=== PATIENT | female | born 1955 | race Caucasian/White ===

== ENCOUNTER 2016-09-22 13:10 | Inpatient (IN) | payer BC, OTHER ==
[~2016-09-22] VITALS: Ht 165.1 cm; Wt 72.6 kg
[2016-09-22] MEDS ORDERED: ONDANSETRON ODT 4 MG TAB.RAPDIS SL PRN (13:45)
[2016-09-22] MEDS ORDERED: LOPERAMIDE HCL 2 MG CAPSULE PO PRN ×2 (13:45)
[2016-09-22] MEDS ORDERED: MAGNESIUM HYDROXIDE 30 ML LIQUID UDC PO PRN (13:45)
[2016-09-22] MEDS ORDERED: MAG HYDROX/AL HYDROX/SIMETH 30 ML LIQUID UDC PO PRN (13:45)
[2016-09-22] MEDS ORDERED: ACETAMINOPHEN 325 MG TABLET PO PRN (13:45)
[2016-09-22] MEDS ORDERED: LORAZEPAM 2 MG/1 ML VIAL IM PRN (13:45)
[2016-09-22] MEDS ORDERED: MIRALAX 17 GM POWD.PACK PO PRN (13:45)
[2016-09-22] MEDS ORDERED: PROMETHAZINE HCL 25 MG/1 ML VIAL IM PRN (13:45)
[2016-09-22] MEDS ORDERED: CLONIDINE HCL 0.1 MG TABLET PO PRN (13:45)
[2016-09-22] MEDS ORDERED: LORAZEPAM 1 MG TABLET PO PRN ×2 (13:45)
[2016-09-22] MEDS ORDERED: HYDROXYZINE PAMOATE 25 MG CAPSULE PO PRN (13:45)
[2016-09-22] MEDS ORDERED: PARO20TA51 PO (14:55)
[2016-09-22] MEDS ORDERED: LOSA1TAB36 PO (14:55)
[2016-09-22] MEDS ORDERED: ACYC400T PO (14:55)
[2016-09-22] MEDS ORDERED: POLY30DR OP (14:58)
[2016-09-22] MEDS ORDERED: [UNRECOGNIZED DRUG - OTHER] (14:58)
[2016-09-22] MEDS ORDERED: THIAMINE HCL 200 MG/2 ML VIAL IM ONE (15:00)
[2016-09-22 15:02] VITALS: BP 132/68
[2016-09-22] MEDS: LORAZEPAM 1 MG TABLET PO SCH ×3 (15:04→22:00)
[2016-09-22 15:10] LABS: BASOPHILS % (AUTO) 0.5 % (0.0-2.0); EOSINOPHILS % (AUTO) 0.3 % (0.0-7.0); HEMATOCRIT 40.3 % (37.0-47.0); HEMOGLOBIN 13.7 g/dL (12.0-16.0); LYMPHOCYTES # (AUTO) 1.8 K/uL (0.8-4.8); LYMPHOCYTES % (AUTO) 25.4 % (20.5-51.5); MEAN CORPUSCULAR HEMOGLOBIN 34.1 uug (27.0-31.0); MEAN CORPUSCULAR HGB CONC 34 g/dL (32.0-37.0); MEAN CORPUSCULAR VOLUME 100.4 fL (81.0-99.0); MONOCYTES # (AUTO) 0.5 K/uL (0.1-1.30); MONOCYTES % (AUTO) 6.6 % (0.0-11.0); NEUTROPHILS # (AUTO) 4.8 K/uL (1.8-8.9); NEUTROPHILS % (AUTO) 67.2 % (38.5-71.5); PLATELET COUNT (AUTO) 308 K/uL (150-450); RED BLOOD CELL COUNT(AUTO) 4.02 MIL/uL (4.20-5.40); RED CELL DISTRIBUTION WIDTH 12.7 % (11.5-14.5); WHITE BLOOD COUNT (AUTO) 7.1 K/uL (4.0-11.2)
[2016-09-22 16:16] LABS: HIV-1 p24 ANTIGEN NON REACTIVE (NONREACTIVE); HIV-1/2 ANTIBODY NON REACTIVE (NONREACTIVE)
[2016-09-22 16:25] LABS: ALANINE AMINOTRANSFERASE 46 U/L (14-59); ALBUMIN 3.7 g/dL (3.4-5.0); ALKALINE PHOSPHATASE 73 U/L (50-136); AMYLASE 64 U/L (25-115); ASPARTATE AMINOTRANSFERASE 26 U/L (15-37); BILIRUBIN,TOTAL 0.6 mg/dL (0.2-1.0); CALCIUM 9.1 mg/dL (8.5-10.1); CARBON DIOXIDE 30 mmol/L (21-32); CHLORIDE 99 mmol/L (98-107); CREATININE 0.7 mg/dL (0.6-1.3); GFR 85 mL/min (>60); GLUCOSE 94 mg/dL (74-106); LIPASE 312 U/L (73-393); MAGNESIUM 2.2 mg/dL (1.8-2.4); POTASSIUM 3.9 mmol/L (3.5-5.1); SODIUM SERUM 138 mmol/L (136-145); TOTAL PROTEIN, SERUM 7.5 g/dL (6.4-8.2)
[2016-09-22 16:37] LABS: THYROID STIMULATING HORMONE 0.958 mIU/mL (0.358-3.740)
[2016-09-22 16:46] LABS: ETHANOL < 3 MG/DL (0-0)
[2016-09-22 16:47] LABS: *AMPHETAMINE, URINE NEGATIVE (NEGATIVE); *BARBITURATE, URINE NEGATIVE (NEGATIVE); *CANNABINOID, URINE NEGATIVE (NEGATIVE); *COCCAINE, URINE NEGATIVE (NEGATIVE); *OPIATE, URINE NEGATIVE (NEGATIVE); *PHENCYCLIDINE SCREEN,URINE NEGATIVE (NEGATIVE)
[2016-09-22 16:47] LABS: UREA NITROGEN, BLOOD 20 mg/dL (7-18)
--- NOTE | 2016-09-22 17:05 | NUR ---
ADMISSION Admitted a 61 year old female from [facility]. Arrived on [facility] at 1415, patients body assessment completed, noted with intact skin no breakdown, bruising or discoloration noted. Patient body search completed by female HOME HEALTH ATTENDANT, no contraband found. Patient was oriented to unit and educated regarding light use with good verbal understanding. Patient vital signs WNL. Patient reports allergies to: shellfish. Patient is 5 feet 5 inches and weights 160lbs. Patient reports substance use history of: 1. ETOH- vodka 750ml daily for one year, with history of drinking alcohol since the age of 21. Patient reports was in an outpatient program 4 years ago for 60 days with longest period of sobriety 3/4 of a year. patient reports this past year has been drinking on a daily basis. Patient reports she is not a cigarette smoker. Patient reports her primary care physician is Dr. John Robledo in [place] at [facility]. Patient reports past medical history of hypertension and depression. Denies any history of seizures. Patient denies any history of family substance abuse. Reports she received a flu and pna vaccine in April 2016. Past surgical history of: hysterectomy 20 years ago and appendectomy. patient presented alert and oriented x4, vital signs with in normal limits. Presented with mild nausea, and anxiety with ciwa score of: 5. Patient was seen and examined by Dr. Solis, admitting orders were input. Psychiatrist aware of new admission. Patients abdomen is soft and non distended, bowel sounds heard in all quadrants. Respirations are even and unlabored, lungs clear upon auscultation. Patient with admitting VTE score of 2, DVT pumps placed in room, patient was administered vitamin B1 injection as ordered at 1530. Patient was placed on an Ativan taper, first dose administered at 1530, safety measures in place. call light with in reach, will continue to monitor closely.
[2016-09-22 17:34] VITALS: BP 122/65
[2016-09-22 18:15] VITALS: BP 122/65
--- NOTE | 2016-09-22 19:08 | NUR ---
END OF SHIFT Patient alert and oriented x4, patient compliant with therapeutic plan of care, admitted at 1415, was placed on a 5 day Ativan taper, first dose of taper administered at 1500. Patient with admitting Dx: etoh dependence, admitting ciwa score of: 5, presented with mild nausea and anxiety. 1700 assessment patient presented with: anxiety with ciwa score of: 3. encouraged patient adequate PO fluid intake as tolerated noted with good appetite patient, encouraged patient to attend group therapies/sessions to learn new coping skills to prevent relapse, patient denies SI/HI. Safety measures in place. Call light with in reach, will continue to monitor closely. Patient endorsement report given to security shift supervisor nurse, all pertinent information discussed.
[2016-09-22 20:00] VITALS: BP 116/73
--- NOTE | 2016-09-22 20:00 | NUR ---
Start of Shift Pt is a 61 year old female admitted on 09/22/2016 for ETOH, placed on 5 day Ativan taper, started today. Pt reported consuming Vodka 750ml /daily x1 year, last intake of 750ml on 09/21/2016. PMH: HTN, Depression, Hysterectomy and Appendectomy. Pt is allergic to Shellfish, regular diet, fall/seizure precautions denies any history of seizures and full code. Upon assessment, pt reports anxiety, reports mild chills throughout body, respirations even and unlabored, denies SOB/chest pain, denies n/v/d, skin warm, moist and intact, bowel sounds active x4, abdomen soft. Safety measures in place, call light within reach, side rails up x2, bed locked and in low position. Will continue to monitor.
[2016-09-23] VITALS: BP 128/87
--- NOTE | 2016-09-23 | NUR ---
Vital Signs BP 128/87, pulse 74, respirations 16, SpO2 98%, SpO2 97.7, pain rated 0/10. CIWA assessment deferred d/t pt sleeping - to assess while pt is awake as ordered. Pt is sleeping, no s/s of distress noted, respirations even and unlabored. Safety measures in place, call light within reach, side rials up x2, bed locked and in low position. Will continue to monitor.
--- NOTE | 2016-09-23 04:00 | NUR ---
Pt refused to be woken up for 0400 Vital Signs CIWA assessment deferred d/t pt sleeping - to assess while pt is awake as ordered. Pt is sleeping, no s/s of distress noted, respirations even and unlabored. Safety measures in place, call light within reach, side rials up x2, bed locked and in low position. Will continue to monitor.
--- NOTE | 2016-09-23 07:00 | NUR ---
End of Shift Pt is a 61 year old female admitted on 09/22/2016 for ETOH, placed on 5 day Ativan taper, started today. Pt reported consuming Vodka 750ml /daily x1 year, last intake of 750ml on 09/21/2016. PMH: HTN, Depression, Hysterectomy and Appendectomy. Pt is allergic to Shellfish, regular diet, fall/seizure precautions denies any history of seizures and full code. During shift, pt presented with anxiety, chills - scheduled taper mediation administered, CIWA 4. No PRN medications administered. VS stable, pt slept for 8 hours, intake of 500 ml PO and voids x0. Safety measures in place, call light within reach, side rails up x2, bed locked and in low position. Endorsed to day shift nurse.
--- NOTE | 2016-09-23 07:29 | NUR ---
BEGINNING OF SHIFT Patient endorsement report received from assistant shift supervisor nurse, all pertinent information discussed. Patient is a 61 year old female admitted on 09/22/2016 with admitting Dx:etoh dependence. Patient with past medical history of: depression and hypertension. Patient with substance use history of: 750ml of vodka daily for one year. As per assistant shift supervisor patient received no PRNS during assistant shift supervisor, Per assistant shift supervisor patients last ciwa score of: 4, currently with 5 day Ativan taper, patient to begin day 2 of taper. slept for 8 hours. Patient received in bed with eyes closed respirations are even and unlabored. Responsive to verbal stimuli, educated regarding plan of care for the day and medication regimen, patient is scheduled for bedside paracentesis during shift as ordered, safety measures in place, call light with in reach, will continue to monitor closely Addendum: 09/23/16 at 0748 by IVON DUNCAN LVN CLARIFICATION: ERROR: PLEASE DISREGARD NOTE ABOVE, WRONG PATIENT.
--- NOTE | 2016-09-23 07:48 | NUR ---
BEGINNING OF SHIFT Patient endorsement report received from health aid nurse, all pertinent information discussed. Patient is a 61 year old female admitted on 09/22/2016 with admitting Dx:etoh dependence. Patient with past medical history of: depression and hypertension. Patient with substance use history of: 750ml of vodka daily for one year. As per health aid patient received no PRNS during health aid, Per health aid patients last ciwa score of: 4, currently with 5 day Ativan taper, patient to begin day 2 of taper. slept for 8 hours. Patient received in bed with eyes closed respirations are even and unlabored. Responsive to verbal stimuli, educated regarding plan of care for the day and medication regimen, safety measures in place, call light with in reach, will continue to monitor closely
[2016-09-23 08:22] VITALS: BP 146/90
[2016-09-23] MEDS: MULTIVITAMINS,THERAPEUTIC TABLET PO SCH (08:24)
[2016-09-23] MEDS: FOLIC ACID 1 MG TABLET PO SCH (08:24)
[2016-09-23] MEDS: LORAZEPAM 1 MG TABLET PO SCH ×3 (08:24→20:21)
[2016-09-23] MEDS: THIAMINE HCL 100 MG TABLET PO SCH (08:24)
[2016-09-23] MEDS ORDERED: TUBERCULIN,PURIF.PROT.DERIV. 5 TU/0.1 ML TEST ID ONE (09:00)
[2016-09-23 11:17] LABS: HCV AB 0.2 s/co ratio (0.0-0.9); HEPATITIS B CORE AB, IgM Negative (Negative); HEPATITIS B SURFACE AG Negative (Negative)
[2016-09-23 14:39] VITALS: BP 145/88
[2016-09-23] MEDS: PAROXETINE HCL 20 MG TABLET PO SCH (14:41)
[2016-09-23] MEDS: LOSARTAN HCTZ PO SCH (15:59)
[2016-09-23 16:18] VITALS: BP 132/83
--- NOTE | 2016-09-23 18:41 | NUR ---
END OF SHIFT Patient alert and oriented x4, patient compliant with therapeutic plan of care, Patient with admitting Dx: etoh dependence and is currently on a 5 day Ativan taper, patient continues with day 2 of taper, , well tolerated, no ASE noted. 0900 assessment patient presented with: anxiety and barely sweating with ciwa score of: 5; 1300 assessment patient presented with barely sweating and anxiety with ciwas core of: 5; 1700 assessment patient presented with barely sweating and anxiety with ciwa score of; 5, patient was seen by psychiatrist during shift, Prozac was reconciled and administered as ordered. Blood pressure medication was also reconciled by Dr. Solis, all medications were administered as ordered. encouraged patient adequate PO fluid intake as tolerated noted with good appetite patient, encouraged patient to attend group therapies/sessions to learn new coping skills to prevent relapse, preferred to stay in room, patient denies SI/HI. Safety measures in place. Call light with in reach, will continue to monitor closely. Patient endorsement report given to second shift supervisor nurse, all pertinent information discussed.
[2016-09-23 20:00] VITALS: BP 113/74
--- NOTE | 2016-09-23 20:00 | NUR ---
Start of Shift Pt is a 61 year old female admitted on 09/22/2016 for ETOH, placed on 5 day Ativan taper, started today. Pt reported consuming Vodka 750ml /daily x1 year, last intake of 750ml on 09/21/2016. PMH: HTN, Depression, Hysterectomy and Appendectomy. Pt is allergic to Shellfish, regular diet, fall/seizure precautions denies any history of seizures and full code. Upon assessment, pt reports anxiety, presents with sweating, respirations even and unlabored, denies SOB/chest pain, denies n/v/d, skin warm, moist and intact, bowel sounds active x4, abdomen soft. Safety measures in place, call light within reach, side rails up x2, bed locked and in low position. Will continue to monitor.
--- NOTE | 2016-09-24 | NUR ---
Pt refused to be woken up for 0000 Vital Signs CIWA assessment deferred d/t pt sleeping - to assess while pt is awake as ordered. Pt is sleeping, no s/s of distress noted, respirations even and unlabored. Safety measures in place, call light within reach, side rials up x2, bed locked and in low position. Will continue to monitor.
--- NOTE | 2016-09-24 07:00 | NUR ---
End of Shift Pt is a 61 year old female admitted on 09/22/2016 for ETOH, placed on 5 day Ativan taper, started today. Pt reported consuming Vodka 750ml /daily x1 year, last intake of 750ml on 09/21/2016. PMH: HTN, Depression, Hysterectomy and Appendectomy. Pt is allergic to Shellfish, regular diet, fall/seizure precautions denies any history of seizures and full code. During shift, pt presented with anxiety, sweating was noted, scheduled taper medications administered, effective as reported by pt, CHAZ 4. No PRN medications administered. VS stable, pt slept for 8 hours, intake of 296 ml Po and voids x1. Safety measures in place, call light within reach, side rails up x2, bed locked and in low position. Endorsed to day shift nurse.
[2016-09-24 07:43] LABS: FOLIC ACID 19.6 NG/ML (8.6-58.9)
--- NOTE | 2016-09-24 07:45 | NUR ---
start of shift note: received pt from electric operator nurse, pt is a 61 year old female in stable condition at this time no s/s of pain or discomfort. pt is alert and oriented. pt is [facility] for ETOH withdrawal/dependence. pt is tolerating taper well. pt is very tearful and labile, pt verbalizes she is so depressed because she misses her family. will continue to monitor pt and continue to meet pt's needs
[2016-09-24 08:52] LABS: CALCIUM 8.5 mg/dL (8.5-10.1); CREATININE 0.7 mg/dL (0.6-1.3); MAGNESIUM 2.4 mg/dL (1.8-2.4)
[2016-09-24] MEDS: PAROXETINE HCL 20 MG TABLET PO SCH (09:28)
[2016-09-24] MEDS: FOLIC ACID 1 MG TABLET PO SCH (09:28)
[2016-09-24] MEDS: THIAMINE HCL 100 MG TABLET PO SCH (09:28)
[2016-09-24] MEDS: LORAZEPAM 1 MG TABLET PO SCH ×4 (09:28→20:17)
[2016-09-24] MEDS: LOSARTAN HCTZ PO SCH (09:28)
[2016-09-24] MEDS: MULTIVITAMINS,THERAPEUTIC TABLET PO SCH (09:28)
[2016-09-24 10:43] VITALS: BP 127/88
[2016-09-24] MEDS ORDERED: HYDROXYZINE PAMOATE 25 MG CAPSULE PO PRN (11:15)
[2016-09-24] MEDS: HYDROXYZINE PAMOATE 25 MG CAPSULE PO PRN (11:59)
--- NOTE | 2016-09-24 11:59 | NUR ---
PRN ADMINISTRATION: PT RECEIVED VISTARIL [address] MAY. PT WAS VERY EMOTIONAL AND VERBALIZED ANXIETY
--- NOTE | 2016-09-24 12:30 | NUR ---
PRN RE-ASSESSMENT: VISTARIL EFFECTIVE PT VERBALIZES DECREASED AGITATION AND ANXIETY AND STATES SHE FEELS MUCH MORE CALMER
[2016-09-24] MEDS: DOCUSATE SODIUM 250 MG CAPSULE PO SCH (12:47)
[2016-09-24 13:26] VITALS: BP 144/75
[2016-09-24 17:47] VITALS: BP 104/62
--- NOTE | 2016-09-24 18:17 | NUR ---
END OF SHIFT NOTE: PT IS A 61 YEAR FEMALE WHO IS ADMITTED TO [facility] FOR ETOH WITHDRAWAL/DEPENDENCE. PT IS ALERT AND ORIENTED. PT TOLERATING ATIVAN TAPER WELL. PT IS LABILE AND VERBALIZES BEING SAD AND MISSING HER FAMILY. PTS LAST CIWA IS 4 AND PT'S V/S WNL.WILL ENDORSE PT TO ENGINE TURNER NURSE.
[2016-09-24 20:00] VITALS: BP 111/76
--- NOTE | 2016-09-24 20:00 | NUR ---
1999 Patient received resting quietly with eyes closed and respirations even at 18. Easily aroused for nurse assess and vital signs. Patient responds at nurse's greeting and introduction with delayed, soft, " Hello". Patient's color is pink and her skin is warm, dry and intact. Patient is oriented to person, place, day, date and her personal situation. Reoriented to time. Patient's lung sounds are clear bilaterally and active bowel sounds are noted X 4 abdominal Quads, per auscultation. Patient states that she had "an emotional day today, but she is "feeling better now". " It will be alright". Patient states that she is eating and taking fluids ad beatris with no gastric issues so far. Patient states that she is 'not up to attending [facility] groups just yet and she has mostly been resting in her room since her admission. Patient moves all her extremities fully WNL, though movements are somewhat slow. Vital signs are: 98-88-18 111/76 O2 sat 95%, CIWA 2. Patient denies any pain or other discomforts and no requests are offered at this time. Patient was admitted on 09/22/16 for Alcohol withdrawal and she in currently on a 5-Day Ativan medication taper, which she is apparently tolerating well so far. Patient has SCD in place on bed with bilateral leg sleeves off patient's legs at this time per patient. Bed is locked and in lowest position, bed rails are up X 2 and call light within patient's easy reach.
[2016-09-25] VITALS: BP 101/78
--- NOTE | 2016-09-25 04:00 | NUR ---
Patient refused V/S, CIWA to be done at this time.
--- NOTE | 2016-09-25 06:30 | NUR ---
0630 Patient had an uneventful night, sleeping a total of 9 hours. Total intake was 1,091 ml p.o. and she had 2 voids and no stools at bathroom. Patient had no Prn medications this shift. V/SS afebrile, CIWA 2. Patient cooperative and verbally appropriate when awake, though mood/affect quiet/somewhat flat. Patient is presently resting comfortably in stable condition. Eyes closed and respirations even, unlabored at 14.
--- NOTE | 2016-09-25 07:09 | NUR ---
Start of shift Pt is a 61 year old female admitted on 09/22/2016 for ETOH dependence/withdrawals. Pt reported consuming Vodka 750ml /daily x1 year Pt is full code regular diet on fall and seizure precautions reports being allergic to shellfish. Pt is placed on 5 day Ativan taper tolerating well. PMH: HTN, Depression, Hysterectomy and Appendectomy. Pt did not receive any PRN medications last night. Pts last CIWA was a 2 taken at 2000. Pt slept a total of 9 hours last night. Safety measures in place, call light within reach, side rails up x2, bed locked and in low position. Will continue to monitor and provide support.
[2016-09-25 08:00] VITALS: BP 126/87
[2016-09-25] MEDS: PAROXETINE HCL 20 MG TABLET PO SCH (09:56)
[2016-09-25] MEDS: DOCUSATE SODIUM 250 MG CAPSULE PO SCH (09:56)
[2016-09-25] MEDS: FOLIC ACID 1 MG TABLET PO SCH (09:57)
[2016-09-25] MEDS: MULTIVITAMINS,THERAPEUTIC TABLET PO SCH (09:57)
[2016-09-25] MEDS: THIAMINE HCL 100 MG TABLET PO SCH (09:57)
[2016-09-25] MEDS: LORAZEPAM 1 MG TABLET PO SCH ×3 (09:57→20:12)
[2016-09-25] MEDS: LOSARTAN HCTZ PO SCH (09:58)
--- NOTE | 2016-09-25 09:59 | NUR ---
PRN MEDICATION Pt c/o pain in the jaw rating it 5/10 requested something for relief, non-pharmacological techniques interventions provided x3 and were not effective. PRN Tylenol 650mg PO, administered, educated pt about s/e of medication and when to contact nurse. all needs met, all safety measures in place, will continue to monitor.
--- NOTE | 2016-09-25 10:59 | NUR ---
PRN REASSESSMENT Medication effective pt reported a decrease in pain to 1/10. all needs met, all safety measures in place will continue to monitor.
[2016-09-25 12:00] VITALS: BP 114/74
[2016-09-25 16:00] VITALS: BP 117/81
--- NOTE | 2016-09-25 19:20 | NUR ---
End Of Shift Pt is a 61 year old female admitted on 09/22/2016 for ETOH dependence/withdrawals. Pt reported consuming Vodka 750ml /daily x1 year Pt is full code regular diet on fall and seizure precautions reports being allergic to shellfish. Pt is placed on 5 day Ativan taper tolerating well. PMH: HTN, Depression, Hysterectomy and Appendectomy. Pt received PRN Tylenol 650mg for jaw pain, which was effective. Pts last CIWA was a 3 taken at 1600. Pt did not participate in groups or activities. Pt stated that the medications are working well at controlling the withdrawal symptoms, evidenced by low assessment scores during the day ranging from 5-3. Pt ate all of her meals. Pt remains compliant with the treatment plan. Pts vital signs within normal limits, A/Ox4, denies chest pain. Respirations even unlabored, lungs clear upon auscultation abdomen soft and non- distended. Pt denies nausea, vomiting and diarrhea. Pt total fluid intake was 1483ml with 2 voids and no stool. Safety measures in place, call light within reach. All pertinent information discussed with bias cutting machine operator, endorsement given to bias cutting machine operator nurse.
[2016-09-25 20:00] VITALS: BP 107/72
--- NOTE | 2016-09-25 20:00 | NUR ---
1999 Patient received awake, alert and lying quietly watching television. Upon seeing nurse enter her room, patient waves her hand and states, " Hi, how are you?" Patient's color is pink and her skin is clean, warm, dry and intact.Patient is oriented to person, place, day, date and her personal situation. Reoriented to time. After some discussion with patient, nurse asks patient why she has not been attending [facility] groups or socialising. Patient states, " I'm around lots of people all the time. I have eight kids and ten grandchildren, so it feels good to have some time by myself right now." I don't feel up to going to any groups. Not yet." Lung sounds are clear bilaterally per auscultation. Patient states that she is eating well and taking fluids ad beatris with no gastric issues noted. Vital signs are: 98.4-81-18 107/72 O2 sat 95%, CIWA 5. Patient moves all her extremities fully WNL. Fall precautions continue. Patient was admitted on 09/22/16 for Alcohol withdrawal and she is currently on a 5-Day Ativan medication taper, which she is apparently tolerating well so far. Patient states that she feels some anxiety and no pain at this time. Bed is locked and in lowest position, bed rails are up X 2 and call light within patient's easy reach.
[2016-09-25] MEDS: HYDROXYZINE PAMOATE 25 MG CAPSULE PO PRN (20:12)
--- NOTE | 2016-09-25 20:12 | NUR ---
PRN MEDICATION: Prn Vistaril 50 mg p.o. given per patient's c/o " lots of anxiety".
--- NOTE | 2016-09-25 21:12 | NUR ---
REASSESSMENT PRN MEDICATION: Patient is resting quietly with eyes closed and respirations regular and unlabored at 14.
--- NOTE | 2016-09-26 | NUR ---
Patient V/S, CIWA to be done at this time.
--- NOTE | 2016-09-26 04:00 | NUR ---
Patient is refusing V/S, CIWA to be done at this time.
--- NOTE | 2016-09-26 06:30 | NUR ---
630 Patient had an uneventful night, sleeping a total of 8 hours. Total intake was 1,047 ml p.o. and she had 1 void and no stools at bathroom. Prn medication given noted separately per floor protocol. V/SS afebrile, CIWA 5. Patient is cooperative and verbally appropriate when awake, though her mood/affect is flat and slightly withdrawn. Patient mostly speaks when she is spoken to first. Patient is presently resting comfortably with eyes closed and respirations even, unlabored at 14. Patient is in stable condition at this time.
--- NOTE | 2016-09-26 07:10 | NUR ---
Start of shift Pt is a 61 year old female admitted on 09/22/2016 for ETOH dependence/withdrawals. Pt reported consuming Vodka 750ml /daily x1 year Pt is full code regular diet on fall and seizure precautions reports being allergic to shellfish. Pt is placed on 5 day Ativan taper tolerating well. PMH: HTN, Depression, Hysterectomy and Appendectomy. Pt received PRN Vistaril 50mg, medication effective per plant operator/shift supervisor nurse. Pts last CIWA was a 5 taken at 0400. Pt slept a total of 8 hours last night. Safety measures in place, call light within reach, side rails up x2, bed locked and in low position. Will continue to monitor and provide support.
[2016-09-26 08:00] VITALS: BP 132/95
[2016-09-26] MEDS: MULTIVITAMINS,THERAPEUTIC TABLET PO SCH (09:14)
[2016-09-26] MEDS: LOSARTAN HCTZ PO SCH (09:14)
[2016-09-26] MEDS: DOCUSATE SODIUM 250 MG CAPSULE PO SCH (09:14)
[2016-09-26] MEDS: THIAMINE HCL 100 MG TABLET PO SCH (09:14)
[2016-09-26] MEDS: FOLIC ACID 1 MG TABLET PO SCH (09:14)
[2016-09-26] MEDS: PAROXETINE HCL 20 MG TABLET PO SCH (09:15)
[2016-09-26] MEDS: LORAZEPAM 1 MG TABLET PO SCH ×2 (09:15→20:10)
[2016-09-26] MEDS: CHOLECALCIFEROL 1,000 UNIT TABLET PO SCH (09:15)
[2016-09-26 12:00] VITALS: BP 128/89
[2016-09-26 16:00] VITALS: BP 129/84
--- NOTE | 2016-09-26 19:06 | NUR ---
End Of Shift Pt is a 61 year old female admitted on 09/22/2016 for ETOH dependence/withdrawals. Pt reported consuming Vodka 750ml /daily x1 year Pt is full code regular diet on fall and seizure precautions reports being allergic to shellfish. Pt is placed on 5 day Ativan taper tolerating well. PMH: HTN, Depression, Hysterectomy and Appendectomy. Pt did not receive any PRN medications during the day. Pts last CIWA was a 3 taken at 1600. Pt participated in groups and activities. Pt stated that the medications are working well at controlling the withdrawal symptoms, evidenced by low assessment scores during the day ranging from 6-3. Pt ate all of her meals. Pt remains compliant with the treatment plan. Pts vital signs within normal limits, A/Ox4, denies chest pain. Respirations even unlabored, lungs clear upon auscultation abdomen soft and non- distended. Pt denies nausea, vomiting and diarrhea. Pt total fluid intake was 2500ml with 5 voids and no stool. Safety measures in place, call light within reach. All pertinent information discussed with nightman, endorsement given to nightman nurse.
--- NOTE | 2016-09-26 19:06 | NUR ---
START OF SHIFT Pt endorsed by day shift nurse. SBAR report received. Patient is a 61 years old female admitted to [facility] on 09/22/2016 for Alcohol/Vodka dependence placed on 5 Days Ativan Taper on 09/22/2016, and tolerating well. Patient reported of Shellfish Allergies. Patient on Full Code; Regular Diet; Fall and Seizures Precautions. Patient reported that she daily used 750 ml of Vodka during 1 year. PMH: HTN; Depression; Hysterectomy; Appendectomy. Upon assessment patient is alert and oriented x4. Speech is clear. CIWA 3. Patient c/o anxiety. Patient has tremors, that can felt, sweating. Breathing is unlabored and even. Lungs Sound are clear bilaterally. Patient denied SOB and chest pain. Heart rate is regular. BS is active in all x4 quadrants. Skin is intact, warm and moist by touch. No PRN Medication given during day shift. .Patient participated in groups and activities. Safety measures on place by hospital policy: Call light within reach; Bed in lowest position and locked; side rails up x2. Will continue to monitor.
[2016-09-26] MEDS: BENZOCAINE ORAL CARE 12 ML BOTTLE MM PRN (19:26)
--- NOTE | 2016-09-26 19:26 | NUR ---
PRN ANDESOL ORAL CARE FOR DENTAL PAIN ADMINISTRATION Patient c/o low jaw pain 12/13. PRN Andesol oral care ordered for dental pain administrated as ordered. Patient tolerated well. Safety measures on place by hospital policy: Call light within reach; Bed in lowest position and locked; side rails up x2. Will continue to monitor.
[2016-09-26 20:00] VITALS: BP 124/74
[2016-09-26] MEDS: diphenhydrAMINE 50 MG CAPSULE PO PRN (20:09)
--- NOTE | 2016-09-26 20:09 | NUR ---
PRN BENADRYL PO ADMINISTRATION Patient c/o insomnia and asked PRN Medication for insomnia now. Patient was assessed. PRN Benadryl PO was discussed with patient. Patient was educated for actions, adverse reactions and side effects of Benadryl. Patient returns back her knowledge by verbalizing understanding.Safety measures on place by hospital policy: Call light within reach; Bed in lowest position and locked; side rails up x2. Will continue to monitor.
--- NOTE | 2016-09-26 20:26 | NUR ---
REASSESSMENT Patient reassessed. Patient resting quietly on her bed. Patient denies any pain now: "0/10". PRN Adesol Oral Care ordered for dental pain was effective.Safety measures on place by hospital policy: Call light within reach; Bed in lowest position and locked; side rails up x2. Will continue to monitor.
--- NOTE | 2016-09-26 21:09 | NUR ---
REASSESSMENT Patient is sleeping. PRN Benadryl PO was effective.Safety measures on place by hospital policy: Call light within reach; Bed in lowest position and locked; side rails up x2. Will continue to monitor.
[2016-09-27] VITALS: BP 113/68
[2016-09-27 04:00] VITALS: BP 126/85
--- NOTE | 2016-09-27 07:15 | NUR ---
Start of shift note SBAR report rcv'd/ Pt was admitted for ETOH dependence Pt had a PMH of HTN and depression. Pt is allergic to shellfish, is full code and on a regular diet. Pt is on a 5 day ativan taper. Pt states that she wants colace, which is scheduled for 0900. Pt has no other complaints at this time. Will continue to monitor pt. All needs addressed at this time.
--- NOTE | 2016-09-27 07:23 | NUR ---
END OF SHIFT Pt endorsed to day shift nurse. SBAR report given. Patient is a 61 years old female admitted to [facility] on 09/22/2016 for Alcohol/Vodka dependence, and placed on 5 Days Ativan Taper on 09/22/2016 tolerating well. Patient reported of Shellfish Allergies. Patient on Full Code; Regular Diet; Fall and Seizures Precautions. Patient reported that she daily used 750 ml of Vodka during one year. PMH: HTN; Depression; Hysterectomy; Appendectomy. Upon assessment at 04:00: LAWRENCEWA 4. Patient's anxiety. Patient has tremors, that can felt, sweating. PRN Benadryl PO administrated as ordered and was effective. Patient was compliant with treatment plan. Patient slept 6 hours; Intake 1500 ml; Voided x3. Patient participated in groups and activities. Safety measures on place by hospital policy: Call light within reach; Bed in lowest position and locked; side rails up x2.
[2016-09-27 08:00] VITALS: BP 122/77
--- NOTE | 2016-09-27 08:10 | NUR ---
PRN administration Pt c/o pain of 5/10 in her tooth, administered PRN ambusol. Will continue to monitor pt.
[2016-09-27] MEDS: BENZOCAINE ORAL CARE 12 ML BOTTLE MM PRN ×2 (08:20→20:28)
[2016-09-27] MEDS: LOSARTAN HCTZ PO SCH (08:20)
[2016-09-27] MEDS: CHOLECALCIFEROL 1,000 UNIT TABLET PO SCH (08:20)
[2016-09-27] MEDS: PAROXETINE HCL 20 MG TABLET PO SCH (08:21)
[2016-09-27] MEDS: DOCUSATE SODIUM 250 MG CAPSULE PO SCH (08:21)
[2016-09-27] MEDS: FOLIC ACID 1 MG TABLET PO SCH (08:21)
[2016-09-27] MEDS: MULTIVITAMINS,THERAPEUTIC TABLET PO SCH (08:21)
[2016-09-27] MEDS: THIAMINE HCL 100 MG TABLET PO SCH (08:21)
--- NOTE | 2016-09-27 09:10 | NUR ---
Reassessment Pt states that her pain has reduced to 1/10 and that she is comfortable.
[2016-09-27 12:00] VITALS: BP 104/79
[2016-09-27 16:00] VITALS: BP 114/72
[2016-09-27] MEDS: IBUPROFEN 400 MG TABLET PO PRN (18:36)
--- NOTE | 2016-09-27 18:40 | NUR ---
PRN administration Pt c/o tooth pain, stated she wanted some motrin. Administered motrin 400mg PO x 1 per MD order. Will continue to monitor pt.
--- NOTE | 2016-09-27 19:10 | NUR ---
End of shift note Pt was admitted for ETOH dependence Pt had a PMH of HTN and depression. Pt is allergic to shellfish, is full code and on a regular diet. Pt is on a 5 day ativan taper. Pt c/o tooth pain during the shift and had PRN ambsol and PRN motrin. Pt has no further complaints at this time. SBAR report endorsed to oncoming shift. Pt is scheduled for discharge tomorrow, pt states that she feels ready. Pt needs to provide a UDS.
--- NOTE | 2016-09-27 19:15 | NUR ---
START OF SHIFT Patient's endorsed by day shift nurse. SBAR report received . Patient is a 61 years old Female admitted to [facility] on 09/22/2016 for Alcohol withdrawal finished 5 day Ativan taper started on 09/22/2016. Patient has Shellfish allergy; Regular Diet; placed on Full Code, Fall and Seizures precautions. Patient denies History of Seizures. PMH: HTN; Depression. PSH: Hysterectomy; Appendectomy. Substance use: ETOH/Vodka 750 ml daily 1 year. Date of last use 750 ml on 09/21/2016. Upon assessment at 19:00 patient's alert and oriented x 4; CIWA 4: Pt's anxiety, tremors that can felt; headache 3/10. VS: T: 98'1; HR: 82; RR 17; O2 Sat: 95%. Dental pain now is 2/10. PRN Motrin PO administrated at 18:15 was effective. Patient compliant with treatment plan. Breathing is unlabored and even. Lungs Sounds are clear bilaterally. Patient denies SOB and chest pain. Heart Rate is regular. No murmur noted. BS is active in all x 4 quadrants. Last BM's on 09/27/2016 at 11:00. Urine is clear, yellow. Patient denies pain during urination. UDT's collected and sent to lab as ordered 09/27/2016 at 19:15. Patient is scheduling for discharge tomorrow, 09/28/2016. Safety measures on the place: Call Light within reach; Bed in the lowest position and locked; Bed rails upx2. Will continue to monitor.
[2016-09-27] MEDS ORDERED: CHOL10002 PO (19:38)
[2016-09-27] MEDS ORDERED: DIPH50CA37 PO (19:38)
[2016-09-27] MEDS ORDERED: HYDR-3895 PO (19:38)
[2016-09-27] MEDS ORDERED: Docusate Sodium PO (19:38)
[2016-09-27 19:51] LABS: *AMPHETAMINE, URINE NEGATIVE (NEGATIVE); *BARBITURATE, URINE NEGATIVE (NEGATIVE); *CANNABINOID, URINE NEGATIVE (NEGATIVE); *COCCAINE, URINE NEGATIVE (NEGATIVE); *OPIATE, URINE NEGATIVE (NEGATIVE); *PHENCYCLIDINE SCREEN,URINE NEGATIVE (NEGATIVE)
[2016-09-27 20:00] VITALS: BP 114/71
--- NOTE | 2016-09-27 20:28 | NUR ---
PRN ANDESOL ORAL CARE FOR DENTAL PAIN ADMINISTRATION Patient c/o low jaw pain 09/12. PRN Andesol oral care ordered for dental pain administrated as ordered. Patient tolerated well. Safety measures on place by hospital policy: Call light within reach; Bed in lowest position and locked; side rails up x2. Will continue to monitor.
[2016-09-27] MEDS: diphenhydrAMINE 50 MG CAPSULE PO PRN (20:29)
--- NOTE | 2016-09-27 20:29 | NUR ---
PRN BENADRYL PO ADMINISTRATION Patient c/o insomnia and asked sleep aid. Patient was assessed. PRN Benadryl PO was discussed with patient. Patient was educated for actions, adverse reactions and side effects of Benadryl. Patient returns back her knowledge by verbalizing understanding. Safety measures on place by hospital policy: Call light within reach; Bed in lowest position and locked; side rails up x2.Will continue to monitor.
--- NOTE | 2016-09-27 21:29 | NUR ---
REASSESSMENT Patient reassessed. Patient's sleeping quietly on her bed. PRN Andesol Oral Care ordered for dental pain and PRN Benadryl PO were effective. Safety measures on place by hospital policy: Call light within reach; Bed in lowest position and locked; side rails up x2. Will continue to monitor.
--- NOTE | 2016-09-28 | NUR ---
VS REFUSED AND CIWA DEFERRED Patient refused to be woken up for 00:00 VS. CIWA/COWS deferred d/t patient sleeping to assess while patient is awake. Safety measures on place by hospital policy: Call light within reach; Bed in lowest position and locked; side rails up x2. Will continue to monitor.
[2016-09-28 04:00] VITALS: BP 109/69
--- NOTE | 2016-09-28 07:05 | NUR ---
END OF SHIFT NOTE Patient's endorsed to day shift nurse in stable condition. SBAR report given. Patient is a 61 years old female admitted to [facility] on 09/22/2016 for Alcohol withdrawal finished 5 day Ativan taper on 09/26/2016. Allergic to Shellfish; Regular Diet; Full Code, Fall and Seizures precautions. Substance use: ETOH/Vodka 750 ml daily 1 year. Date of last use 750 ml on 09/21/2016. CIWA decreased from 4 to 2. During shift, patient presented with anxiety, depression, restlessness, bones and muscle aches. VS: T:97'6; BP: 109/69; HR 64; RR: 14; O2SAT: 94%. Patient denies pain: 0/10. PRN Benadryl PO for insomnia and PRN Andesol oral care for dental pain were effective. Patient slept 5 hours; [id number]; Voided x2. Patient compliant with medications regimen. Ordered UDS's lab results received, printed, and placed on the chart. Patient has order for discharge today, 09/28/2016. Safety measures on the place: Call Light within reach; Bed in the lowest position and locked; Bed rails upx2.
--- NOTE | 2016-09-28 07:27 | NUR ---
START OF SHIFT Received report from retail shift supervisor nurse. 61 year old female admitted on 09/22/16 for ETOH dependence. Pt has completed ordered 5 day Ativan taper and is medically cleared for d/c today. Pt is A/O x4. Reported allergies to shellfish, full code, regular diet. Pt has medical hx of HTN, depression, hysterectomy and appendectomy. Pt remains safe and seizure free throughout hospitalization. PRN Benadryl was administered at night for sleep, and pt slept for 5 hours. V/S remain WNL. Most recent CIWA is 2. Pt had BM x1. Pt is awake at this time. Ambulates with steady gait. All needs met, will continue to monitor.
[2016-09-28] MEDS: FOLIC ACID 1 MG TABLET PO SCH (08:08)
[2016-09-28] MEDS: CHOLECALCIFEROL 1,000 UNIT TABLET PO SCH (08:08)
[2016-09-28] MEDS: THIAMINE HCL 100 MG TABLET PO SCH (08:08)
[2016-09-28] MEDS: MULTIVITAMINS,THERAPEUTIC TABLET PO SCH (08:08)
[2016-09-28] MEDS: PAROXETINE HCL 20 MG TABLET PO SCH (08:08)
[2016-09-28] MEDS: DOCUSATE SODIUM 250 MG CAPSULE PO SCH (08:09)
[2016-09-28] MEDS: IBUPROFEN 400 MG TABLET PO PRN (08:11)
[2016-09-28] MEDS: LOSARTAN HCTZ PO SCH (08:11)
--- NOTE | 2016-09-28 08:11 | NUR ---
PRN MOTRIN Pt complains of 5/10 toothache, PRN Motrin administered as ordered.
[2016-09-28] MEDS: BENZOCAINE ORAL CARE 12 ML BOTTLE MM PRN (08:12)
[2016-09-28 08:22] VITALS: BP 117/78
--- NOTE | 2016-09-28 09:39 | NUR ---
D/C NOTE Pt is A/O x4. V/S remain WNL. Pt denies SI/HI or hallucinations. Pt shows no s/s of acute withdrawal at this time, and is stable. MD has medically cleared pt for d/c . Education on Hepatitis C, smoking cessation and medication side effects provided. Pt verbalizes understanding. All pt belongings are in belonging bag, including home medications. Refuses FLU and PNU vaccination. Pt is being accompanied by REEL REPAIRER at this time to be transported to rehab. All needs met.
== END 2016-09-28 09:39 | disposition other institution (70) | DRG 895 ==
LOC: SRC 13:24
PROVIDERS: ADMIT Internal Medicine; ATTEND Internal Medicine
PROC: HZ2ZZZZ Detoxification Services for Substance Abuse Treatment (ICD-10-PCS; principal; 2016-09-22)
PROC: HZ31ZZZ Individual Counseling for Substance Abuse Treatment, Behavioral (ICD-10-PCS; 2016-09-23)
DX: F10.230 Alcohol dependence with withdrawal, uncomplicated (principal); E87.3 Alkalosis; F33.1 Major depressive disorder, recurrent, moderate; I10 Essential (primary) hypertension; E55.9 Vitamin D deficiency, unspecified; F41.9 Anxiety disorder, unspecified; G47.00 Insomnia, unspecified; Y90.0 Blood alcohol level of less than 20 mg/100 ml; K59.00 Constipation, unspecified; E86.0 Dehydration; Z79.899 Other long term (current) drug therapy
CPT/HCPCS: 36415; 80307; 82306; 82746; 83690; 83735; 84443; 85025; 86580; 86592; 86705; 86803; 87340; 87806; A9150; G6040-TC; J3411; Q0163